=== PATIENT | male | born 1960 | race Hispanic/Latino ===

== ENCOUNTER 2019-07-05 06:51 | Outpatient (CLI) | payer OTHER ==
[2019-07-05 14:06] LABS: Hemoglobin 15.3 g/dL (14.0-18.0); Mean Corpuscular HGB CONC 33.5 g/dL (32.0-36.0); Mean Corpuscular Hemoglobin 30.5 pg (27.0-31.0); Mean Corpuscular Volume 90.9 fL (78.0-98.0); Mean Platelet Volume 10.1 fL (7.4-10.4); Platelet Count 179 thou/uL (130-400); Red Blood Cell (RBC) Count 5.02 mill/uL (4.70-6.10); White Blood Cell (WBC) Count 8.2 thou/uL (4.8-10.8)
[2019-07-05 14:30] LABS: Anion Gap 11 mmol/L (10-20); BUN (Urea Nitrogen) 13 mg/dL (8.4-25.7); Calc. Creatinine Clearance 0 mL/min (70-130); Calcium 9.4 mg/dL (7.8-10.44); Carbon Dioxide 27 mmol/L (22-29); Chloride 105 mmol/L (98-107); Estimated GFR-MDRD 75; Glucose 88 mg/dL (70-105); Potassium 4.1 mmol/L (3.5-5.1); Sodium 139 mmol/L (136-145)
--- NOTE | 2019-07-06 16:52 | EKG ---
Test Reason : Blood Pressure : / mmHG Vent. Rate : 073 BPM Atrial Rate : 073 BPM P-R Int : 140 ms QRS Dur : 084 ms QT Int : 392 ms P-R-T Axes : 017 054 -21 degrees QTc Int : 431 ms Normal sinus rhythm T wave abnormality, consider inferior ischemia Abnormal ECG Confirmed by CHRIS LATHAM ([id number]) on 07/06/2019 4:52:17 PM Referred By: IERO Confirmed By:CHRIS LATHAM
== END 2019-07-05 06:52 | disposition home or self-care (01) ==
LOC: LABBT 06:51
PROVIDERS: ATTEND Orthopaedic Surgery
DX: Z01.818 Encounter for other preprocedural examination (principal); M75.102 Unspecified rotator cuff tear or rupture of left shoulder, not specified as traumatic
CPT/HCPCS: 80048; 85027; 93005; 93010

== ENCOUNTER 2019-07-07 06:55 | Day surgery (SDC) | payer OTHER ==
[2019-07-05 12:28] VITALS: BMI 32.5
[2019-07-07] MEDS ORDERED: Midazolam HCl 2 mg/2 ml Vial ONE ×2 (08:36→10:07)
[2019-07-07] MEDS ORDERED: Fentanyl 100 MCG/2 ML VIAL ONE (08:36)
[2019-07-07] MEDS ORDERED: HYDROcodone/Acetaminophen 10/325 mg Tablet PO PRN ×2 (09:25)
[2019-07-07] MEDS ORDERED: Zolpidem Tartrate 5 MG TAB PO PRN (09:25)
[2019-07-07] MEDS ORDERED: traMADol HCl 50 MG TAB PO PRN ×2 (09:25)
[2019-07-07] MEDS ORDERED: Acetaminophen 325 MG TAB PO PRN (09:25)
[2019-07-07] MEDS ORDERED: Ondansetron PF 4 MG/2 ML Vial IVP PRN (09:25)
[2019-07-07] MEDS ORDERED: Ropivacaine 0.2% 550 ML 550 ML NERVE BLCK SCH (09:25)
[2019-07-07] MEDS ORDERED: Promethazine HCl 25 MG/ML VIAL IM PRN (09:25)
[2019-07-07] MEDS ORDERED: Fentanyl 100 MCG/2 ML VIAL IV PRN (09:26)
[2019-07-07] MEDS ORDERED: Ropivacaine 0.2% HCl/PF (40 MG/20 ML VIAL) ONE (09:32)
[2019-07-07] MEDS ORDERED: Rocuronium Bromide 10 MG/ML (10ML VIAL) ONE (09:32)
[2019-07-07] MEDS ORDERED: Ropivacaine 0.5% HCl/PF (150 MG/30 ML VIAL) ONE (09:32)
[2019-07-07] MEDS ORDERED: Glycopyrrolate 0.2 MG/ML 5 ML SYRINGE ONE (09:32)
[2019-07-07] MEDS ORDERED: Ondansetron PF 4 MG/2 ML Vial ONE (09:32)
[2019-07-07] MEDS ORDERED: PROPOFOL 200 MG/20 ML VIAL ONE (09:32)
[2019-07-07] MEDS ORDERED: Lidocaine 1% PF 5 ML VIAL ONE (09:32)
[2019-07-07] MEDS ORDERED: Bupivacaine 0.25% HCL 30 ML VIAL ONE (09:49)
[2019-07-07] MEDS ORDERED: Lidocaine 1% w/Epinephrine 1:100K 20 ML VIAL ONE (09:49)
--- NOTE | 2019-07-07 12:56 | OP ---
DATE OF PROCEDURE: 07/07/2019 PREOPERATIVE DIAGNOSES: Left shoulder impingement and rotator cuff tear and labral tear. POSTOPERATIVE DIAGNOSES: 1. Left shoulder impingement. The patient had a completely unstable superior labral tear and biceps tendon tear and instability. 2. 30% undersurface partial-thickness tear of the beginning portion of supraspinatus. PROCEDURES PERFORMED: 1. Left shoulder arthroscopy with debridement and shaving of partial rotator cuff tear as well as superior labrum. 2. Arthroscopic subacromial decompression. 3. Open biceps tenodesis. ELECTRONICS ENGINEERING TECHNICIAN: Bruce Hodges PA-C ESTIMATED BLOOD LOSS: 30. COMPLICATIONS: None. ANESTHESIA: He had a general anesthetic. He also had a preoperative block. IMPLANT: Our only implant is 7 x 23 BioComposite Bio-Tenodesis screw. DISPOSITION: He did go to recovery room in stable condition. INDICATIONS: This is a 58-year-old male, who has been having significant pain in his arm as well as weakness. At this time, he opted to have surgery since he has failed all nonoperative treatment. DESCRIPTION OF PROCEDURE: After all appropriate consent forms were explained and signed, he was taken back to the operating room and at this time given general anesthetic. Once the level of anesthesia was appropriate, he was rolled into the right lateral decubitus position with all bony prominences well-padded. Axillary roll was placed underneath the right axilla. Beanbag was inflated to hold them in place and all bony prominences were well-padded. The arm was taken through full range of motion and then suspended with 15 pounds in standard arthroscopic fashion. The left shoulder and upper extremity were prepped and draped in standard surgical fashion. Bony anatomical landmarks were drawn out. The subacromial space was infiltrated with lidocaine with epinephrine. At this time, posterior portal was established. Scope was placed into the shoulder joint. Anterior working portal was made and diagnostic arthroscopy commenced. Humeral head was pristine. Glenoid had some scuffing along the anterior-inferior quadrant. No full-thickness defects noted. There was a significant unstable torn superior labral tear, which had multiple tear planes. The complete superior labrum was then stable and off the glenoid. The biceps tendon also had a tear going into the biceps tendon itself from the root and as you follow the labrum posteriorly, there was also some degenerative posterior tearing and some degenerative inferior tearing. Shaver was introduced to debride these areas. We then took the SERFAS energy and coagulated any brisk venous bleeding from the significant synovitis that was noted in the glenohumeral joint. Once this had been accomplished, we did lord the biceps tendon with a stitch using an 18-gauge needle. We then removed the biceps and the superior labrum, releasing it for later open tenodesis. This was done with SERFAS energy. At this time, we then took the shaver and debrided the partial cuff tear at this time. This appeared to be about 30% of the way through the tendon itself. The remaining of tendon appeared to be in good condition. We then looked through the glenohumeral joint one more time. No loose bodies were noted. No other treatment was needed and at this time, we removed the scope and replaced in the subacromial space. Lateral working portal was made and copious amount of bursa was removed from off the underlying cuff. This was freed up in its entirety, visualized completely and probed and not found to have any significant tearing on the bursal side. A small subacromial decompression was performed using the SERFAS energy probe as well as the shaver and once this was done, we removed the scope and drained the shoulder. We then proceeded to do our open biceps tenodesis. A 15 blade was used to incise down through skin. Bovie was used to coagulate any brisk venous bleeding. We then opened the deltoid fascia sharply, used finger dissection to split the fibers in line to get down to the underlying transverse humeral ligament. This was opened up. All brisk venous bleeding was coagulated. There was a significant amount of synovitis, which had to be removed. We then pulled the tendon out into the wound. We sutured the biceps tendon itself and then cut off the intra-articular portion and removed this from the field. At this time, we placed our pin. We used a 7.5 reamer to ream to a depth of 25 and then placed a 7 x 23 BioComposite Bio-Tenodesis screw in standard fashion. Sutures were tied over top of this, so the screw could not back out. We then thoroughly irrigated and dried. We closed our deltoid fascia with a running Vicryl, 2-0 Vicryl, and nylon stitches were used on the skin as well as the portals. Bulky sterile dressing was then applied. The patient was then awakened and taken to recovery room in stable condition. All counts were correct at the end of the case and he did receive preoperative IV antibiotics. Job ID: [id number]
== END 2019-07-07 14:15 | disposition home or self-care (01) ==
LOC: SDC 06:55
PROVIDERS: ATTEND Orthopaedic Surgery
PROC: 3E0T3BZ Introduction of Anesthetic Agent into Peripheral Nerves and Plexi, Percutaneous Approach (ICD-10-PCS; principal; 2019-07-07)
PROC: 0RBK4ZZ Excision of Left Shoulder Joint, Percutaneous Endoscopic Approach (ICD-10-PCS; principal; 2019-07-07)
PROC: 0RHK04Z Insertion of Internal Fixation Device into Left Shoulder Joint, Open Approach (ICD-10-PCS; principal; 2019-07-07)
PROC: 0LS20ZZ Reposition Left Shoulder Tendon, Open Approach (ICD-10-PCS; principal; 2019-07-07)
DX: S46.012A Strain of muscle(s) and tendon(s) of the rotator cuff of left shoulder, initial encounter (principal); M25.812 Other specified joint disorders, left shoulder; M25.312 Other instability, left shoulder; S43.492A Other sprain of left shoulder joint, initial encounter; M65.812 Other synovitis and tenosynovitis, left shoulder; G89.18 Other acute postprocedural pain; I10 Essential (primary) hypertension; E78.5 Hyperlipidemia, unspecified; E03.9 Hypothyroidism, unspecified; Z79.899 Other long term (current) drug therapy; X50.0XXA Overexertion from strenuous movement or load, initial encounter
CPT/HCPCS: A4306; C1713; J0690; J2001; J2250; J2405; J2704; J2795; J3010; S0020